=== PATIENT | female | born 1980 | race Two or more races ===

== ENCOUNTER 2016-11-06 15:00 | Emergency (ER) | payer SELFPAY ==
[~2016-11-06] VITALS: Ht 167.6 cm; Wt 106.0 kg
[2016-11-06 17:35] VITALS: BP 156/101
== END 2016-11-06 18:41 | disposition home or self-care (01) ==
LOC: ER 18:12
DX: J40 Bronchitis, not specified as acute or chronic (principal); R07.9 Chest pain, unspecified; I10 Essential (primary) hypertension; F17.210 Nicotine dependence, cigarettes, uncomplicated
CPT/HCPCS: 93005; 99284; Z7610